=== PATIENT | male | born 1975 | race American Indian/Alaskan Native ===

== ENCOUNTER 2017-08-20 14:40 | Emergency (ER) | payer MEDICAID ==
[2017-08-20] MEDS ORDERED: ATIVAN IV ONE (15:18)
[2017-08-20 15:26] LABS: Hematocrit 45.4 % (35.5-45.6); Hemoglobin 14.7 gm/dl (11.8-15.2); Mean Corpuscular HGB Conc 32 % (32-34); Mean Corpuscular Hemoglobin 27 pg (28-32); Mean Corpuscular Volume 84 fl (84-94); Platelet Count 326 K/mm3 (140-440); Red Cell Distribution Width 14.6 % (13.2-15.2)
[2017-08-20 15:40] LABS: BUN/Creatinine Ratio 8; Blood Urea Nitrogen 9 mg/dL (9-20); Calcium 9.5 mg/dL (8.4-10.2); Hemolysis Index 2
[2017-08-20] MEDS ORDERED: KEPPRA 1,000 MG/NS 0.75% 100ML 1,000 MG/100 ML BAG IV ONE (17:21)
[2017-08-20] MEDS ORDERED: TYLENOL PO ONE (17:22)
--- NOTE | 2017-08-20 18:27 | Emergency Department Report ---
ED Seizure HPI - General Chief Complaint: Seizure Stated Complaint: SEIZURE Time Seen by Provider: 08/20/17 16:04 Source: family, EMS Mode of arrival: Stretcher Limitations: No Limitations - History of Present Illness Initial Comments: This is a pleasant 42-year-old male with a past medical history significant for hypertension as well as DVT one year ago and anxiety and depression in the past surgical history significant for hip surgery at age 13 and knee surgery and adulthood who presents via EMS for a witnessed seizure event today at home. The patient is was sitting on the porch in no distress and suddenly the noticed that the patient's head rolled back and he began foaming at the mouth. She activated EMS and they arrived on scene. The patient slowly came to the states that the seizure lasted about 40 seconds and would come and go. The patient reports that his seizures began in December 2016 and no identifiable cause has been appreciated at this time. He has seen a neurologist in the hospital but not on an outpatient basis. He does take Keppra. He feels that his triggers are when he does not sleep. He also is a less than half pack per day smoker and denies any alcohol use or illicit drug use at this time. However, he stopped heavy marijuana use and heavy alcohol use 6 years ago. At this time he denies any symptoms although he cannot recall the events immediately before and after the seizure. He recalls EMS being on scene. MD Complaint: seizure -: Sudden, minutes(s) (1) Description of Episode: tonic-clonic movement Witnessed:: Yes Seizure History: known seizure disorder Place: home Possible Precipitating Event: none Associated Symptoms: denies other symptoms Treatments Prior to Arrival: none - Related Data Home Medications Medication Instructions Recorded Confirmed Last Taken ALPRAZolam [Xanax TAB] 1 mg PO TID PRN 02/09/17 02/09/17 Unknown Hydrochlorothiazide [HCTZ] 20 mg PO QDAY 02/09/17 02/09/17 1 Day Ago ~02/08/17 Potassium 10 mg PO DAILY 02/09/17 02/09/17 02/08/17 Previous Rx's Medication Instructions Recorded Last Taken Type Coreg 12.5 mg PO DAILY #30 02/11/17 Unknown Rx Eliquis 5 mg PO BID #30 02/11/17 Unknown Rx Nicotine [Habitrol] 14 mg TD DAILY #30 patch 02/11/17 Unknown Rx levETIRAcetam [Keppra TAB] 1,000 mg PO BID #60 tab 02/11/17 Unknown Rx Allergies Allergy/AdvReac Type Severity Reaction Status Date / Time No Known Allergies Allergy Verified 02/09/17 09:13 ED Review of Systems ROS: Stated complaint: SEIZURE Other details as noted in HPI Comment: All other systems reviewed and negative Constitutional: see HPI Eyes: as per HPI ENT: as per HPI Respiratory: see HPI Cardiovascular: as per HPI Endocrine: see HPI Gastrointestinal: as per HPI Genitourinary: as per HPI Musculoskeletal: as per HPI Skin: as per HPI Neurological: as per HPI Psychiatric: as per HPI Hematological/Lymphatic: as per HPI ED Past Medical Hx - Past Medical History Previous Medical History?: Yes Hx Hypertension: Yes Hx Seizures: Yes Additional medical history: Anxiety, Depression - Surgical History Past Surgical History?: Yes Additional Surgical History: left hip surgery - Social History Smoking Status: Current Every Day Smoker Substance Use Type: None - Medications Home Medications: Home Medications Medication Instructions Recorded Confirmed Last Taken Type ALPRAZolam [Xanax TAB] 1 mg PO TID PRN 02/09/17 02/09/17 Unknown History Hydrochlorothiazide [HCTZ] 20 mg PO QDAY 02/09/17 02/09/17 1 Day Ago History ~02/08/17 Potassium 10 mg PO DAILY 02/09/17 02/09/17 02/08/17 History Coreg 12.5 mg PO DAILY #30 02/11/17 Unknown Rx Eliquis 5 mg PO BID #30 02/11/17 Unknown Rx Nicotine [Habitrol] 14 mg TD DAILY #30 patch 02/11/17 Unknown Rx levETIRAcetam [Keppra TAB] 1,000 mg PO BID #60 tab 02/11/17 Unknown Rx ED Physical Exam - General Limitations: No Limitations General appearance: alert, in no apparent distress - Head Head exam: Present: atraumatic - Eye Eye exam: Present: normal appearance, PERRL, EOMI - ENT ENT exam: Present: normal exam, normal orophraynx - Neck Neck exam: Present: normal inspection - Respiratory Respiratory exam: Present: normal lung sounds bilaterally. Absent: respiratory distress, wheezes, rales, rhonchi, stridor - Cardiovascular Cardiovascular Exam: Present: regular rate, normal rhythm, normal heart sounds - GI/Abdominal GI/Abdominal exam: Present: soft, normal bowel sounds - Extremities Exam Extremities exam: Present: normal inspection, full ROM - Back Exam Back exam: Present: normal inspection, full ROM - Neurological Exam Neurological exam: Present: alert, oriented X3, CN II-XII intact - Psychiatric Psychiatric exam: Present: normal affect, normal mood - Skin Skin exam: Present: warm, dry, intact ED Course Vital Signs 08/20/17 08/20/17 08/20/17 14:52 15:20 15:25 Temperature 98.8 F Pulse Rate 94 H 93 H 95 H Respiratory 12 10 L 15 Rate Blood Pressure 131/92 145/87 O2 Sat by Pulse 97 97 Oximetry 08/20/17 08/20/17 08/20/17 15:30 15:35 15:41 Temperature Pulse Rate 94 H 91 H 91 H Respiratory 20 20 19 Rate Blood Pressure 135/92 135/92 135/92 O2 Sat by Pulse 97 97 97 Oximetry 08/20/17 08/20/17 08/20/17 15:45 15:51 15:55 Temperature Pulse Rate 90 89 87 Respiratory 19 18 17 Rate Blood Pressure 135/92 122/77 122/77 O2 Sat by Pulse 99 96 97 Oximetry 08/20/17 08/20/17 08/20/17 16:00 16:04 16:05 Temperature 98.8 F Pulse Rate 86 86 Respiratory 17 18 Rate Blood Pressure 121/80 121/80 O2 Sat by Pulse 95 96 Oximetry 08/20/17 08/20/17 08/20/17 16:07 16:09 16:11 Temperature Pulse Rate 87 86 83 Respiratory 17 17 17 Rate Blood Pressure 121/80 121/80 121/80 O2 Sat by Pulse 96 95 97 Oximetry 08/20/17 08/20/17 08/20/17 16:13 16:15 16:17 Temperature Pulse Rate 82 80 81 Respiratory 16 16 17 Rate Blood Pressure 121/80 119/77 119/77 O2 Sat by Pulse 96 95 96 Oximetry 08/20/17 08/20/17 08/20/17 16:19 16:21 16:23 Temperature Pulse Rate 88 82 81 Respiratory 18 17 17 Rate Blood Pressure 119/77 119/77 119/77 O2 Sat by Pulse 95 96 99 Oximetry 08/20/17 08/20/17 08/20/17 16:25 16:27 16:29 Temperature Pulse Rate 80 77 78 Respiratory 19 11 L 17 Rate Blood Pressure 119/77 119/77 119/77 O2 Sat by Pulse 97 99 98 Oximetry 08/20/17 08/20/17 08/20/17 16:30 16:35 16:41 Temperature Pulse Rate 74 83 74 Respiratory 11 L 11 L 18 Rate Blood Pressure 125/81 125/81 125/81 O2 Sat by Pulse 99 100 96 Oximetry 08/20/17 08/20/17 16:45 16:51 Temperature Pulse Rate 75 75 Respiratory 12 14 Rate Blood Pressure 136/86 136/86 O2 Sat by Pulse 100 Oximetry - Reevaluation(s) Reevaluation #1: 08/20/17 18:27 I discussed at length with the patient and his the need for appropriate follow-up with neurology. He probably needs an EEG. I also discussed over-the- counter medications like long-acting melatonin and Benadryl that could help him with sleep. I advised that his primary care doctor could prescribe him something for sleep. I encouraged him to get a good night sleep so that this known trigger does not cause him to have more seizures. I also strongly advised him to not smoke marijuana or alcohol. The patient has not had any alcohol or marijuana in 6 years but during the discussion he did report that whenever he was smoking marijuana he was able to sleep better. I explained to him that sleep in a marijuana induced state is not the same as REM sleep. Also is well known that people who have alcohol use disorder have also poor sleep hygiene. I encouraged him to stay abstinent from both alcohol and marijuana. He expresses understanding. He is on a waiting list at [place] to see a neurologist but this time I advised him to go see his primary care doctor. His express understanding. We will discharge the patient at this time. ED Medical Decision Making - Lab Data Result diagrams: 08/20/17 15:10 08/20/17 15:10 Critical care attestation.: If time is entered above; I have spent that time in minutes in the direct care of this critically ill patient, excluding procedure time. ED Disposition Clinical Impression: Seizure Disposition: DC-01 TO HOME OR SELFCARE Is pt being admited?: No Does the pt Need Aspirin: No Condition: Stable Instructions: Recurrent Seizures Adult (ED) Additional Instructions: Rest, fluids, proper sleep hygiene, follow up with her primary care doctor and neurologist, return as needed, if you like having a life-threatening emergency call 911. Referrals: PRIMARY CARE, [Primary Care Provider] - 3-5 Days
[2017-08-20 19:09] VITALS: BP 133/89
== END 2017-08-20 19:15 | disposition home or self-care (01) ==
LOC: ED 14:40
DX: G40.909 Epilepsy, unspecified, not intractable, without status epilepticus (principal); I10 Essential (primary) hypertension; F17.200 Nicotine dependence, unspecified, uncomplicated; F41.9 Anxiety disorder, unspecified; F32.9 Major depressive disorder, single episode, unspecified; Z86.718 Personal history of other venous thrombosis and embolism
CPT/HCPCS: 36415; 80048; 82962; 85027; 96374; 96375; 99284; J1953; J2060

== ENCOUNTER 2017-10-17 12:38 | Emergency (ER) | payer MEDICAID ==
[2017-10-17] MEDS ORDERED: NORCO 5/325 PO ONE (17:04)
--- NOTE | 2017-10-17 17:05 | Emergency Department Report ---
Chief Complaint: Abdominal Pain Stated Complaint: PELVIC PAIN Time Seen by Provider: 10/17/17 17:02 - HPI History of Present Illness: 42-year-old male presents to the emergency department with complaint of left lower abdominal and upper pelvic pain that started upon waking this morning. It woke him from sleep and was so intense that he was barely able to get out of bed. He denies any fever, nausea, vomiting, problems with bowel or bladder. He has a past medical history of DVT, left hip replacement, hypertension. He has not taken anything for her symptoms and presentation. - ROS Review of Systems: Positive for abdominal and/or pelvic pain Negative for dysuria, hematuria, nausea, vomiting, fever - Exam Vital Signs: Vital Signs 10/17/17 12:42 Temperature 97.9 F Pulse Rate 95 H Respiratory 16 Rate Blood Pressure 139/90 O2 Sat by Pulse 95 Oximetry Physical Exam: Heart sounds are normal to auscultation. Normal bowel sounds. Unable to reproduce patient's abdominal and/or pelvic pain and palpation. MSE screening note: Focused history and physical exam performed. Due to findings the following was ordered: I have ordered a CBC, BMP, urinalysis and a 2 view x-ray. Patient will be given a [place] for discomfort. ED Disposition for MSE Condition: Stable Referrals: ELBERT PATTON MD [Primary Care Provider] - 3-5 Days
[2017-10-17 17:17] LABS: Hematocrit 41.5 % (35.5-45.6); Hemoglobin 13.5 gm/dl (11.8-15.2); Mean Corpuscular HGB Conc 33 % (32-34); Mean Corpuscular Hemoglobin 27 pg (28-32); Mean Corpuscular Volume 84 fl (84-94); Platelet Count 260 K/mm3 (140-440); Red Blood Count 4.93 M/mm3 (3.65-5.03); Red Cell Distribution Width 14.8 % (13.2-15.2)
[2017-10-17 17:32] LABS: Alanine Aminotransferase 38 units/L (7-56); Albumin 4.2 g/dL (3.9-5); BUN/Creatinine Ratio 6; Blood Urea Nitrogen 7 mg/dL (9-20); Calcium 8.6 mg/dL (8.4-10.2); Hemolysis Index 5
[2017-10-17 17:43] LABS: Bacteria,Urine 1+ /HPF (Negative); Bilirubin,Urine NEG (Negative); Blood,Urine NEG (Negative); Color,Urine Yellow (Yellow); Mucus,Urine FEW /HPF; Protein,Urine <15 mg/dL mg/dL (Negative); Urobilinogen,Urine < 2.0 mg/dL (<2.0)
[2017-10-17 18:42] LABS: Anisocytosis 1+; Basophils % (Manual) 0 % (0.0-1.8); Total Cells Counted 100
[2017-10-17 18:43] LABS: Platelet Estimate Consistent w Auto
--- NOTE | 2017-10-17 19:24 | XRay Report ---
FINAL REPORT EXAM: XR ABDOMEN 2V HISTORY: lower abd pain TECHNIQUE: Supine and upright views of abdomen. PRIORS: None. FINDINGS: Nonspecific bowel gas pattern, including multiple loops of prominent or mildly dilated and gas-filled bowel projected across the upper-mid abdomen. No apparent pneumoperitoneum. No abnormal calcifications. Metallic screws x2 noted in left femoral head-neck. Remainder of osseous structures of axial skeleton grossly unremarkable. IMPRESSION: 1. Nonspecific bowel gas pattern, which may represent adynamic ileus. Early or partial mechanical obstruction not completely excluded and followup may be warranted.
[2017-10-17] MEDS ORDERED: LEVAQUIN 750MG/150ML 750 MG/150 ML BAG IV ONE (22:34)
[2017-10-18] MEDS ORDERED: MORPHINE IV ONE (00:25)
[2017-10-18] MEDS ORDERED: ZOFRAN IV ONE (00:26)
--- NOTE | 2017-10-18 00:29 | Emergency Department Report ---
ED Abdominal Pain HPI - General Chief Complaint: Abdominal Pain Stated Complaint: PELVIC PAIN Time Seen by Provider: 10/17/17 17:02 Source: patient Mode of arrival: Ambulatory Limitations: No Limitations - History of Present Illness Initial Comments: 42-year-old male with past medical history hypertension, seizure disorder, obesity, anxiety, depression, and left hip surgery presents possible complaints of left lower quadrant pain started in the morning. Pain is constant but fluctuates in intensity. It is moderate to severe in intensity, worse with movement and palpation. Somewhat improved with rest. Patient complains of some suprapubic discomfort when urinating. He denies nausea, vomiting, testicular pain, fever, dysuria, hematuria, diarrhea, melena, or hematochezia. Patient had abdominal series x-ray concerning for adynamic ileus versus obstruction. Patient has not had any previous abdominal surgeries. Received Agency Prior to my evaluation Severity scale (0 -10): 5 - Related Data Home Medications Medication Instructions Recorded Confirmed Last Taken ALPRAZolam [Xanax TAB] 1 mg PO TID PRN 02/09/17 02/09/17 Unknown Hydrochlorothiazide [HCTZ] 20 mg PO QDAY 02/09/17 02/09/17 1 Day Ago ~02/08/17 Potassium 10 mg PO DAILY 02/09/17 02/09/17 02/08/17 Previous Rx's Medication Instructions Recorded Last Taken Type Coreg 12.5 mg PO DAILY #30 02/11/17 Unknown Rx Eliquis 5 mg PO BID #30 02/11/17 Unknown Rx Nicotine [Habitrol] 14 mg TD DAILY #30 patch 02/11/17 Unknown Rx levETIRAcetam [Keppra TAB] 1,000 mg PO BID #60 tab 02/11/17 Unknown Rx Cephalexin [Keflex] 500 mg PO Q12HR #14 cap 10/18/17 Unknown Rx HYDROcodone/APAP 5-325 [Agency 1 each PO Q6HR PRN #20 tablet 10/18/17 Unknown Rx 5/325] Allergies Allergy/AdvReac Type Severity Reaction Status Date / Time No Known Allergies Allergy Verified 02/09/17 09:13 ED Review of Systems ROS: Stated complaint: PELVIC PAIN Other details as noted in HPI Comment: All other systems reviewed and negative ED Past Medical Hx - Past Medical History Hx Hypertension: Yes Hx Seizures: Yes Additional medical history: Anxiety, Depression - Surgical History Additional Surgical History: left hip surgery - Social History Smoking Status: Current Every Day Smoker - Medications Home Medications: Home Medications Medication Instructions Recorded Confirmed Last Taken Type ALPRAZolam [Xanax TAB] 1 mg PO TID PRN 02/09/17 02/09/17 Unknown History Hydrochlorothiazide [HCTZ] 20 mg PO QDAY 02/09/17 02/09/17 1 Day Ago History ~02/08/17 Potassium 10 mg PO DAILY 02/09/17 02/09/17 02/08/17 History Coreg 12.5 mg PO DAILY #30 02/11/17 Unknown Rx Eliquis 5 mg PO BID #30 02/11/17 Unknown Rx Nicotine [Habitrol] 14 mg TD DAILY #30 patch 02/11/17 Unknown Rx levETIRAcetam [Keppra TAB] 1,000 mg PO BID #60 tab 02/11/17 Unknown Rx Cephalexin [Keflex] 500 mg PO Q12HR #14 cap 10/18/17 Unknown Rx HYDROcodone/APAP 5-325 [Agency 1 each PO Q6HR PRN #20 tablet 10/18/17 Unknown Rx 5/325] ED Physical Exam - General Limitations: No Limitations - Other Other exam information: General: No limitations, patient is alert in no acute distress Head exam: Atraumatic, normocephalic Eyes exam: Normal appearance, pupils equal reactive to light, extraocular movements intact ENT: Moist mucous membrane, normal oropharynx Neck exam: Normal inspection, full range of motion, no meningismus nontender Respiratory exam: Clear to auscultation bilateral, no wheezes, rales, crackles Cardiovascular: Normal rate and rhythm, normal heart sounds Abdomen: Soft, nondistended. Left lower quadrant tenderness, with normal bowel sounds, no rebound, or guarding Extremity: Full range of motion normal inspection no deformity Back: Normal Inspection, full range of motion, no tenderness Neurologic: Alert, oriented x3, cranial nerves intact, no motor or sensory deficit Psychiatric: normal affect, normal mood Skin: Warm, dry, intact ED Course Vital Signs 10/17/17 10/17/17 10/17/17 12:42 21:46 22:29 Temperature 97.9 F 98.6 F Pulse Rate 95 H 69 Respiratory 16 18 18 Rate Blood Pressure 139/90 Blood Pressure 133/86 [Left] O2 Sat by Pulse 95 100 Oximetry 05/06/18 02:06 Temperature 98.3 F Pulse Rate 78 Respiratory 16 Rate Blood Pressure Blood Pressure 132/74 [Left] O2 Sat by Pulse 99 Oximetry ED Medical Decision Making - Lab Data Result diagrams: 10/17/17 17:06 10/17/17 17:06 Lab Results 10/17/17 10/17/17 10/17/17 Range/Units 17:06 17:06 17:14 WBC 7.1 (4.5-11.0) K/mm3 RBC 4.93 (3.65-5.03) M/mm3 Hgb 13.5 (11.8-15.2) gm/dl Hct 41.5 (35.5-45.6) % MCV 84 (84-94) fl MCH 27 L (28-32) pg MCHC 33 (32-34) % RDW 14.8 (13.2-15.2) % Plt Count 260 (140-440) K/mm3 Add Manual Diff Complete Total Counted 100 Seg Neuts % (Manual) 46.0 (40.0-70.0) % Band Neutrophils % 0 % Lymphocytes % (Manual) 48.0 H (13.4-35.0) % Reactive Lymphs % (Man) 0 % Monocytes % (Manual) 3.0 (0.0-7.3) % Eosinophils % (Manual) 3.0 (0.0-4.3) % Basophils % (Manual) 0 (0.0-1.8) % Metamyelocytes % 0 % Myelocytes % 0 % Promyelocytes % 0 % Blast Cells % 0 % Nucleated RBC % Not Reportable Seg Neutrophils # Man 3.3 (1.8-7.7) K/mm3 Band Neutrophils # 0.0 K/mm3 Lymphocytes # (Manual) 3.4 (1.2-5.4) K/mm3 Abs React Lymphs (Man) 0.0 K/mm3 Monocytes # (Manual) 0.2 (0.0-0.8) K/mm3 Eosinophils # (Manual) 0.2 (0.0-0.4) K/mm3 Basophils # (Manual) 0.0 (0.0-0.1) K/mm3 Metamyelocytes # 0.0 K/mm3 Myelocytes # 0.0 K/mm3 Promyelocytes # 0.0 K/mm3 Blast Cells # 0.0 K/mm3 WBC Morphology Not Reportable Hypersegmented Neuts Not Reportable Hyposegmented Neuts Not Reportable Hypogranular Neuts Not Reportable Smudge Cells Not Reportable Toxic Granulation Not Reportable Toxic Vacuolation Not Reportable Dohle Bodies Not Reportable Pelger-Huet Anomaly Not Reportable Pey[place] Rods Not Reportable Platelet Estimate Consistent w auto Clumped Platelets Not Reportable Plt Clumps, EDTA Not Reportable Large Platelets Not Reportable Giant Platelets Not Reportable Platelet Satelliting Not Reportable Plt Morphology Comment Not Reportable RBC Morphology Not Reportable Dimorphic RBCs Not Reportable Polychromasia Not Reportable Hypochromasia Not Reportable Poikilocytosis Not Reportable Anisocytosis 1+ Microcytosis Not Reportable Macrocytosis Not Reportable Spherocytes Not Reportable Pappenheimer Bodies Not Reportable Sickle Cells Not Reportable Target Cells Not Reportable Tear Drop Cells Not Reportable Ovalocytes Not Reportable Helmet Cells Not Reportable Lockhart-Pinson Bodies Not Reportable [place] Rings Not Reportable [place]air[place] Cells Not Reportable Bite Cells Not Reportable Crenated Cell Not Reportable Elliptocytes Not Reportable Acanthocytes (Spur) Not Reportable Rouleaux Not Reportable Hemoglobin C Crystals Not Reportable Schistocytes Not Reportable Malaria parasites Not Reportable Terry Bodies Not Reportable Hem Pathologist Commnt No Sodium 138 (137-145) mmol/L Potassium 4.0 (3.6-5.0) mmol/L Chloride 98.3 (98-107) mmol/L Carbon Dioxide 29 (22-30) mmol/L Anion Gap 15 mmol/L BUN 7 L (9-20) mg/dL Creatinine 1.2 (0.8-1.5) mg/dL Estimated GFR > 60 ml/min BUN/Creatinine Ratio 6 % Glucose 102 H (75-100) mg/dL Calcium 8.6 (8.4-10.2) mg/dL Total Bilirubin 0.20 (0.1-1.2) mg/dL AST 24 (5-40) units/L ALT 38 (7-56) units/L Alkaline Phosphatase 64 (35-129) units/L Total Protein 7.0 (6.3-8.2) g/dL Albumin 4.2 (3.9-5) g/dL Albumin/Globulin Ratio 1.5 % Urine Color Yellow (Yellow) Urine Turbidity Clear (Clear) Urine pH 5.0 (5.0-7.0) Ur Specific [place] 1.018 (1.003-1.030) Urine Protein <15 mg/dl (Negative) mg/dL Urine Glucose (UA) Neg (Negative) mg/dL Urine Ketones Neg (Negative) mg/dL Urine Blood Neg (Negative) Urine Nitrite Neg (Negative) Urine Bilirubin Neg (Negative) Urine Urobilinogen < 2.0 (<2.0) mg/dL Ur Leukocyte Esterase Sm (Negative) Urine WBC (Auto) 7.0 H (0.0-6.0) /HPF Urine RBC (Auto) 2.0 (0.0-6.0) /HPF U Epithel Cells (Auto) 1.0 (0-13.0) /HPF Urine Bacteria (Auto) 1+ (Negative) /HPF Urine Mucus Few /HPF - Radiology Data Radiology results: report reviewed xr abd IMPRESSION: 1. Nonspecific bowel gas pattern, which may represent adynamic ileus. Early or partial mechanical obstruction not completely excluded and followup may be warranted. ct abd/pelvis po and iv contrast MPRESSION: 1. Diffuse fatty infiltration of the liver 2. Gas distension of the colon is a nonspecific finding. No evidence of bowel obstruction. - Medical Decision Making abd pain mild urine wbc and bacteria pt received Levaquin while ct pending after neg result pt received rocephin and azithromycin to cover for std urethritis will be continued on abx and pain med for uti - Differential Diagnosis diverticulitis, UTI, renal colic, ileus Critical Care Time: No Critical care attestation.: If time is entered above; I have spent that time in minutes in the direct care of this critically ill patient, excluding procedure time. ED Disposition Clinical Impression: UTI (urinary tract infection), Abdominal pain Disposition: DC- TO HOME OR SELFCARE Is pt being admited?: No Does the pt Need Aspirin: No Condition: Stable Instructions: Urinary Tract Infection in Men (ED) Additional Instructions: Take the medications as prescribed. Follow-up with your doctor for further evaluation. Return is symptoms worsen as indicated by your discharge instructions. Prescriptions: Cephalexin [Keflex] 500 mg PO Q12HR #14 cap HYDROcodone/APAP 5-325 [Agency 5/325] 1 each PO Q6HR PRN #20 tablet PRN Reason: Pain Referrals: ELBERT PATTON MD [Primary Care Provider] - 3-5 Days Time of Disposition: 02:30
--- NOTE | 2017-10-18 00:56 | Cat Scan Report ---
FINAL REPORT EXAM: CT ABDOMEN PELVIS W CON HISTORY: abd pain concern for obstruction TECHNIQUE: Dynamic helical CT scan through the abdomen and pelvis after ingestion of oral contrast and during and again after intravenous injection of iodinated contrast. Images are reconstructed in the sagittal and coronal planes. PRIORS: None. FINDINGS: The lung bases are clear. There is diffuse low-attenuation of the liver consistent with fatty infiltration. Otherwise, the liver appears normal. The gallbladder, pancreas, spleen and adrenal glands appear normal. The kidneys appear normal. The pelvic organs appear grossly normal. The stomach appears grossly within normal limits. The transverse and left colon is diffusely gas distended. A normal-appearing appendix is identified. Oral contrast progressed to the mid to distal small bowel. There is no evidence of small-bowel obstruction. The abdominal aorta has a normal diameter. There is advanced degenerative disc disease at L5-S1. There is been previous surgical fixation of the left femoral neck. IMPRESSION: 1. Diffuse fatty infiltration of the liver 2. Gas distension of the colon is a nonspecific finding. No evidence of bowel obstruction.
[2017-10-18] MEDS ORDERED: ROCEPHIN 250 MG in NACL 0.9% 50 ML IV ONE (00:59)
[2017-10-18] MEDS ORDERED: ZITHROMAX PO ONE (01:00)
[2017-10-18] MEDS ORDERED: cefTRIAXone 0.25 GM in NACL 0.9% 20 ML IV ONE (01:15)
[2017-10-18 02:06] VITALS: BP 132/74
== END 2017-10-18 02:39 | disposition home or self-care (01) ==
LOC: ED 12:38
DX: N39.0 Urinary tract infection, site not specified (principal); I10 Essential (primary) hypertension; F32.9 Major depressive disorder, single episode, unspecified; F41.9 Anxiety disorder, unspecified; F17.200 Nicotine dependence, unspecified, uncomplicated
CPT/HCPCS: 36415; 74019; 74177; 80053; 81001; 85007; 85025; 87086; 96365; 96367; 96375; 99284; J0696; J1956; J2270; J2405; Q9967